=== PATIENT | female | born 1995 | race Caucasian/White ===

== ENCOUNTER 2019-02-10 02:10 | Emergency (ER) | payer OTHER ==
[~2019-02-10] VITALS: Ht 149.9 cm; Wt 61.0 kg
[2019-02-10] MEDS ORDERED: ONDANSETRON HCL 4MG/2ML INJ IV STA (02:50)
[2019-02-10] MEDS ORDERED: SODIUM CHLORIDE 0.9% 1,000 ML IV ONE (02:50)
[2019-02-10] MEDS ORDERED: KETOROLAC 30MG/ML VIAL IV STA (02:50)
[2019-02-10 03:02] LABS: BASOPHILS % 0.3 % (0.0-2.0); EOSINOPHILS % 1.7 % (0.0-5.0); HEMATOCRIT. 43.3 % (36.0-48.0); HEMOGLOBIN. 14.6 g/dL (12.0-16.0); LYMPHOCYTES % 45.8 % (20.0-50.0); MEAN CORPUSCULAR HEMOGLOBIN 31.6 pg (28.0-32.0); MEAN CORPUSCULAR VOLUME 93.5 fL (81.0-99.0); MONOCYTES % 8.3 % (2.0-8.0); NEUTROPHILS % 43.9 % (40.0-76.0); PLATELET 268 x1000/uL (130-400); RED BLOOD CELL COUNT 4.63 mill/uL (4.2-5.4); RED CELL DISTRIBUTION WIDTH 13.2 % (11.6-14.6)
[2019-02-10 03:16] LABS: CHLORIDE 109 mEq/L (98-107)
[2019-02-10 04:17] LABS: CLARITY URINE CLOUDY (CLEAR); COLOR URINE YELLOW (YELLOW); KETONES URINE TRACE (NEGATIVE); LEUKOCYTE ESTERASE URINE 2+ (NEGATIVE); NITRITE URINE NEGATIVE (NEGATIVE); OCCULT BLOOD URINE 3+ (NEGATIVE); PH URINE 5.5 (4.5-8.0); PROTEIN URINE 1+ (NEGATIVE); SPECIFIC GRAVITY URINE 1.024 (1.005-1.030); UROBILINOGEN URINE 0.2 E.U./dL (0.2-1.0)
[2019-02-10] MEDS ORDERED: HYDROCODONE/ACETAMINOPHEN 5/325MG TABLET PO ONE (04:30)
[2019-02-10 06:22] VITALS: BP 96/52
== END 2019-02-10 06:26 | disposition home or self-care (01) ==
LOC: ER 02:10
DX: R10.2 Pelvic and perineal pain (principal); N83.209 Unspecified ovarian cyst, unspecified side
CPT/HCPCS: 36415; 76830; 76856; 80053; 81003; 81025; 85025; 86850; 86900; 86901; 87077; 87086; 87186; 96374; 96375; 99284; J1885; J2405; J7030; Z7610

== ENCOUNTER 2019-07-03 16:02 | Emergency (ER) | payer OTHER ==
[~2019-07-03] VITALS: Ht 149.9 cm; Wt 61.0 kg
[2019-07-03 16:08] VITALS: BP 150/85
[2019-07-03] MEDS ORDERED: IBUPROFEN 800MG TABLET PO ONE (17:15)
[2019-07-03] MEDS ORDERED: ACETAMINOPHEN 500MG TABLET PO ONE (17:15)
== END 2019-07-03 18:46 | disposition home or self-care (01) ==
LOC: ER 16:02
DX: L03.113 Cellulitis of right upper limb (principal); Y08.89XA Assault by other specified means, initial encounter; Y93.89 Activity, other specified; Y92.830 Public park as the place of occurrence of the external cause
CPT/HCPCS: 73130; 81025; 99283

== ENCOUNTER 2019-07-12 14:43 | Emergency (ER) | payer OTHER ==
[~2019-07-12] VITALS: Ht 149.9 cm; Wt 61.0 kg
[2019-07-12 14:57] VITALS: BP 135/87
[2019-07-12] MEDS ORDERED: ACETAMINOPHEN 325MG TABLET PO ONE (15:15)
== END 2019-07-12 15:35 | disposition home or self-care (01) ==
LOC: ER 14:43
DX: Z04.89 Encounter for examination and observation for other specified reasons (principal); M79.641 Pain in right hand; Z87.828 Personal history of other (healed) physical injury and trauma
CPT/HCPCS: 99282